=== PATIENT | female | born 1965 | race Caucasian/White ===

== ENCOUNTER 2017-05-05 21:36 | Emergency (ER) | payer OTHER ==
[~2017-05-05] VITALS: Ht 152.4 cm; Wt 49.9 kg
[~2017-05-05 21:36] MED LIST: CEFTIN250 MG PO; KETO10TA2 PO; MOTRIN800 MG PO; OMEPRAZOLE20 MG
[2017-05-05] MEDS ORDERED: ENALAPRIL MALEA10 MG (21:47)
== END 2017-05-06 00:41 | disposition home or self-care (01) ==
LOC: ER 21:36
DX: J11.1 Influenza due to unidentified influenza virus with other respiratory manifestations (principal); B34.9 Viral infection, unspecified